=== PATIENT | male | born 1965 | race Hispanic/Latino ===

== ENCOUNTER 2023-08-26 14:40 | Inpatient (IN) | payer SELFPAY ==
[2023-08-26 14:49] LABS: BASOPHILS ABSOLUTE AUTO 0.06 K/uL (0.00-0.20); BASOPHILS PERCENT AUTO 0.2 % (0.0-1.0); HEMATOCRIT 47.9 % (42.0-52.0); HEMOGLOBIN 17.2 g/dL (14.0-18.0); IMMATURE GRAN ABSOLUTE AUTO 0.14 K/uL (0.00-0.05); IMMATURE GRAN PERCENT AUTO 0.6 % (0.0-0.4); LYMPHOCYTES ABSOLUTE AUTO 1.64 K/uL (1.00-4.80); LYMPHOCYTES PERCENT AUTO 6.6 % (24.0-44.0); MEAN CORPUSCULAR HEMOGLOBIN 30.6 pg (28.0-32.0); MEAN CORPUSCULAR HGB CONC 35.9 g/dL (32.0-36.0); MEAN CORPUSCULAR VOLUME 85.1 fL (83.0-99.0); MEAN PLATELET VOLUME 11.4 fL (9.4-12.4); MONOCYTES ABSOLUTE AUTO 1.07 K/uL (0.00-0.80); MONOCYTES PERCENT AUTO 4.3 % (0.0-8.0); NEUTROPHILS ABSOLUTE AUTO 21.81 K/uL (1.80-7.70); NEUTROPHILS PERCENT AUTO 88.3 % (41.0-71.0); PLATELET COUNT,PLT 279 K/uL (150-400); RED BLOOD CELL COUNT 5.63 M/uL (4.52-5.90); WHITE BLOOD CELL COUNT,WBC 24.72 K/uL (3.9-11.3)
[2023-08-26] MEDS: Sodium Chloride 0.9% 10 ML Syringe FLUSH PRN (15:04)
[2023-08-26] MEDS: Sodium Chloride 0.9% 2.5 ML Syringe FLUSH PRN (15:04)
[2023-08-26 15:07] LABS: INR 1.01 (0.86-1.11); PTT,PARTIAL THROMBOPLSTIN TIME 24.8 SEC (23.9-30.7)
[2023-08-26 15:16] LABS: A/G RATIO 1.1 (0.9-1.6); ALBUMIN 4.1 g/dL (3.4-5.0); BILIRUBIN TOTAL 1.5 mg/dL (0.2-1.0); CALCIUM 9.1 mg/dL (8.5-10.1); CREATININE 1.2 mg/dL (0.8-1.3); EST CRCL DRUG DOSING (CG) 57.56 mL/min; POTASSIUM,K 3.5 mmol/L (3.5-5.1); PROTEIN TOTAL,TP 7.8 g/dL (6.4-8.2)
[2023-08-26 15:22] LABS: HEMOGLOBIN A1C 9.1 %
[2023-08-26] MEDS: Sodium Chloride 0.9% 1,000 ML IV ONE (15:35)
[2023-08-26] MEDS: diphenhydrAMINE 50 MG/ML SDV IVPUSH ONE (15:35)
[2023-08-26] MEDS: Metoclopramide 10 MG/2 ML SDV IVPUSH ONE (15:36)
[2023-08-26] MEDS: Clopidogrel 75 MG Tab PO ONE (15:59)
[2023-08-26] MEDS: Aspirin 81 MG Tab.Chew PO ONE (15:59)
[2023-08-26] MEDS ORDERED: Acetaminophen 325 MG Tab PO PRN (16:18)
[2023-08-26] MEDS ORDERED: Polyethylene Glycol 3350 Powder 17 GM Packet PO PRN (16:18)
[2023-08-26] MEDS ORDERED: Melatonin 3 MG Tab PO PRN (16:18)
[2023-08-26] MEDS ORDERED: Acetaminophen 650 MG Supp RECTAL PRN (16:18)
[2023-08-26] MEDS ORDERED: Glucagon,Human Recombinant 1 MG Vial IM PRN (16:23)
[2023-08-26] MEDS ORDERED: 50% Dextrose in Water 50 ML Syringe IVPUSH PRN (16:23)
[2023-08-26 17:09] LABS: TSH ULTRASENSITIVE 0.83 uIU/mL (0.36-3.74)
[2023-08-26] MEDS: Insulin Aspart 100 Units/ML 3 ML Pen SUBCUT SCH (17:46)
[2023-08-26] MEDS: Ondansetron 4 MG/2 ML SDV IVPUSH PRN (17:47)
[2023-08-26] MEDS: Metoprolol Tartrate 25 MG Tab PO SCH (19:05)
[2023-08-27 05:48] LABS: BASOPHILS ABSOLUTE AUTO 0.02 K/uL (0.00-0.20); BASOPHILS PERCENT AUTO 0.1 % (0.0-1.0); HEMATOCRIT 43.4 % (42.0-52.0); HEMOGLOBIN 15.4 g/dL (14.0-18.0); IMMATURE GRAN ABSOLUTE AUTO 0.06 K/uL (0.00-0.05); IMMATURE GRAN PERCENT AUTO 0.4 % (0.0-0.4); LYMPHOCYTES ABSOLUTE AUTO 2.15 K/uL (1.00-4.80); LYMPHOCYTES PERCENT AUTO 13.5 % (24.0-44.0); MEAN CORPUSCULAR HEMOGLOBIN 30.5 pg (28.0-32.0); MEAN CORPUSCULAR HGB CONC 35.5 g/dL (32.0-36.0); MEAN CORPUSCULAR VOLUME 85.9 fL (83.0-99.0); MONOCYTES PERCENT AUTO 6.9 % (0.0-8.0); NEUTROPHILS ABSOLUTE AUTO 12.58 K/uL (1.80-7.70); NEUTROPHILS PERCENT AUTO 79.1 % (41.0-71.0); PLATELET COUNT,PLT 271 K/uL (150-400); RED BLOOD CELL COUNT 5.05 M/uL (4.52-5.90); WHITE BLOOD CELL COUNT,WBC 15.91 K/uL (3.9-11.3)
[2023-08-27 06:16] LABS: CALCIUM 8.7 mg/dL (8.5-10.1); CARBON DIOXIDE,CO2 28.5 mmol/L (21.0-32.0); CREATININE 1.1 mg/dL (0.8-1.3); EST CRCL DRUG DOSING (CG) 65.23 mL/min; MAGNESIUM 2.1 mg/dL (1.8-2.4); POTASSIUM,K 3.6 mmol/L (3.5-5.1)
[2023-08-27] MEDS: Clopidogrel 75 MG Tab PO SCH (10:41)
[2023-08-27] MEDS: atorvaSTATin 40 MG Tab PO SCH (10:41)
[2023-08-27] MEDS: Aspirin 81 MG Tab.EC PO SCH (10:41)
[2023-08-27] MEDS: Gadobenate Dimeglumine 529 MG/ML 20 ML SDV IVPUSH ONE (12:59)
[2023-08-27] MEDS: Insulin Aspart 100 Units/ML 3 ML Pen SUBCUT SCH (16:46)
== END 2023-08-28 11:40 | disposition home or self-care (01) | DRG 66 ==
LOC: MW.ED 14:40 → MW.MS 16:02 → OBSVTOIN 08-27 15:33 → MW.MS 08-27 16:02
PROVIDERS: ADMIT Family Medicine; ATTEND Family Medicine
DX: I63.9 Cerebral infarction, unspecified (principal); I10 Essential (primary) hypertension; R47.1 Dysarthria and anarthria; R29.703 NIHSS score 3; E78.5 Hyperlipidemia, unspecified; E11.65 Type 2 diabetes mellitus with hyperglycemia
CPT/HCPCS: 36415; 70450; 70450-26; 70496; 70496-26; 70498; 70498-26; 70553; 70553-26; 71045; 71045-26; 80048; 80053; 80061; 82607; 82947; 83036; 83735; 84443; 84484; 85025; 85610; 85730; 86850; 86900; 86901; 93005; 93010; 93306; 96361; 96374; 96375; 97162-GP; 99223; 99232; 99239; 99285-25; 99291; A9270-GY; A9577; G0378; J1200; J1815-GY; J2405; J2765; J3490; J7030